=== PATIENT | female | born 2000 | race Caucasian/White ===

== ENCOUNTER 2021-12-01 23:52 | Emergency (ER) | payer OTHER ==
[~2021-12-01] VITALS: Ht 160 cm; Wt 54.5 kg
[2021-12-02 00:15] VITALS: TEMP 99
[2021-12-02 00:57] LABS: BASO % 0.1 % (0.0-2.0); GRAN # 6.1 K/mm3 (1.4-6.5); GRAN % 82.8 % (42.2-75.2); HEMATOCRIT 40.4 % (37.0-47.0); HEMOGLOBIN 13.9 g/dl (12.5-16.0); LYMPH % 13.4 % (20.0-51.0); MEAN CELL VOLUME 89 fl (80.0-100.0); MEAN CORPUSCULAR HEMOGLOBIN 31 pg (27-31); MEAN CORPUSCULAR HGB CONC 34 g/dl (33.0-37.0); MEAN PLATELET VOLUME 11.6 fl (7.4-10.4); MONO # 0.3 K/mm3 (0.1-0.6); MONO % 3.4 % (1.7-9.3); PLATELET COUNT 248 K/mm3 (130-400); RED BLOOD COUNT 4.54 M/mm3 (4.10-5.30); REDCELL DISTRIBUTION WIDTH-CV 11.9 % (11.5-14.5)
[2021-12-02 01:08] LABS: ALBUMIN 4.4 gm/dL (3.5-5.0); BILIRUBIN,TOTAL 0.6 mg/dL (0.2-1.2); CALCIUM 9.6 mg/dL (8.4-10.2); CREATININE, serum 0.76 mg/dL (0.57-1.11); POTASSIUM 3.5 mmol/L (3.5-4.5); TOTAL PROTEIN 8.2 gm/dL (6.2-8.1)
[2021-12-02] MEDS ORDERED: ZOFRAN ODT4 MG PO (02:41)
[2021-12-02 02:45] VITALS: BP 118/76; PULSE 93
== END 2021-12-02 03:00 | disposition home or self-care (01) ==
LOC: COL.ER 23:52
PROVIDERS: Personal Emergency Response Attendant
DX: E86.0 Dehydration (principal); R11.2 Nausea with vomiting, unspecified
CPT/HCPCS: J2270; J2405; J7030